=== PATIENT | male | born 1955 ===

== ENCOUNTER → 2025-02-08 12:00 | Outpatient (REF) | payer OTHER, SELFPAY | LOC: DHSLP 12:00 | PROVIDERS: ATTENDING PHYSICIAN Internal Medicine Critical Care Medicine | DX: G47.33 Obstructive sleep apnea (adult) (pediatric) (principal); R06.83 Snoring | CPT/HCPCS: 95800 ==

== ENCOUNTER → 2025-03-24 13:54 | Outpatient (REF) | payer MEDICARE, OTHER, SELFPAY | LOC: DHSLP 13:54 | PROVIDERS: ATTENDING PHYSICIAN Internal Medicine Critical Care Medicine; FAMILY PHYSICIAN Specialist | DX: G47.61 Periodic limb movement disorder (principal); G47.00 Insomnia, unspecified; R06.83 Snoring; G47.8 Other sleep disorders | CPT/HCPCS: 95810 ==